=== PATIENT | female | born 1965 | race African-American/Black ===

== ENCOUNTER 2017-11-20 14:34 | Emergency (ER) | payer BC ==
[~2017-11-20] VITALS: Ht 165.1 cm; Wt 86.2 kg
[2017-11-20 14:45] VITALS: Ht 165.1 cm; Wt 86.2 kg
[2017-11-20 19:03] VITALS: BP 122/77
== END 2017-11-20 19:03 | disposition home or self-care (01) ==
LOC: ED 14:34
DX: S39.012A Strain of muscle, fascia and tendon of lower back, initial encounter (principal); M79.671 Pain in right foot; E11.9 Type 2 diabetes mellitus without complications; E30.9 Disorder of puberty, unspecified; V49.9XXA Car occupant (driver) (passenger) injured in unspecified traffic accident, initial encounter; Y93.I9 Activity, other involving external motion; Y92.488 Other paved roadways as the place of occurrence of the external cause; Y99.8 Other external cause status
CPT/HCPCS: Q0162